=== PATIENT | female | born 1995 | race Two or more races ===

== ENCOUNTER 2020-03-10 07:34 | Emergency (ER) | payer MEDICAID ==
[~2020-03-10] VITALS: Ht 167.6 cm; Wt 109.0 kg
[2020-03-10 07:58] VITALS: BP 87/50
[2020-03-10 10:21] LABS: CHLORIDE 105 mEq/L (98-107)
[2020-03-10 10:23] LABS: BASOPHILS % 0.5 % (0.0-2.0); EOSINOPHILS % 0.6 % (0.0-5.0); HEMATOCRIT. 38.3 % (36.0-48.0); HEMOGLOBIN. 13.3 g/dL (12.0-16.0); LYMPHOCYTES % 22.2 % (20.0-50.0); MEAN CORPUSCULAR HEMOGLOBIN 28.9 pg (28.0-32.0); MEAN CORPUSCULAR VOLUME 83.2 fL (81.0-99.0); MEAN PLATELET VOLUME 8.6 fl (7.4-10.4); MONOCYTES % 5.6 % (2.0-8.0); NEUTROPHILS % 71.1 % (40.0-76.0); PLATELET 262 x1000/uL (130-400); RED CELL DISTRIBUTION WIDTH 14.7 % (11.6-14.6)
[2020-03-10 10:29] LABS: CLARITY URINE CLOUDY (CLEAR); COLOR URINE YELLOW (YELLOW); KETONES URINE 2+ (NEGATIVE); LEUKOCYTE ESTERASE URINE 1+ (NEGATIVE); NITRITE URINE NEGATIVE (NEGATIVE); OCCULT BLOOD URINE NEGATIVE (NEGATIVE); PH URINE 7.5 (4.5-8.0); PROTEIN URINE NEGATIVE (NEGATIVE)
[2020-03-10 10:45] LABS: B-HCG QUANTITATIVE 34693 mIU/mL (<3)
== END 2020-03-10 12:32 | disposition home or self-care (01) ==
LOC: ER 07:34
DX: O20.0 Threatened abortion (principal); Z3A.14 14 weeks gestation of pregnancy
CPT/HCPCS: 36415; 76801; 80053; 81003; 81025; 84702; 85025; 86850; 86900; 87077; 99284